=== PATIENT | female | born 1975 | race Caucasian/White ===

== ENCOUNTER 2024-05-26 21:00 | Outpatient (REF) | payer OTHER, SELFPAY ==
[2024-06-05 15:08] LABS: Age Gdln ACOG Testing Note (.); HPV Aptima Negative (Negative); IGP, Aptima HPV, rfx 16/18,45 Note (.)
== END 2024-05-26 21:01 | disposition home or self-care (01) ==
LOC: LAB 21:00
PROVIDERS: PCP Family Medicine; Visit Provider Physician Assistant
DX: Z01.419 Encounter for gynecological examination (general) (routine) without abnormal findings (principal)
CPT/HCPCS: 88175

== ENCOUNTER 2025-06-01 21:53 | Outpatient (REF) | payer OTHER, SELFPAY ==
--- OUTSIDE RECORDS SUMMARY | 2025-06-01 10:00 | XMS_ITS | Encounter Summary ---
Author Organization [facility] Address [address] [place] [address] Care Team Providers Care Redipper Name Role Phone Helga Ferris MD Primary Care Provider [phone] Jodi Michel SUPPORT MANAGER-MERCHANDISE CARRIER Unavailable + [phone] Reason for Visit * ReasonCommentsWell Women Visit Encounter Details DateTypeDepartmentCare Team (Latest Contact Info)Oodicsdnxwb73/29/2025 10:00 AM ESTOffice Visit [facility] [address] [place] [address] Yamilka Turcios PA [address] [place], [facility]11 Well woman exam with routine gynecological exam; Breast cancer screening by mammogram; Postmenopausal state; Pelvic pain in female; Pain of ovary; Hormone disorder Social History Tobacco UseTypesPacks/DayYears UsedDateSmoking Tobacco: NeverSmokeless Tobacco: NeverAlcohol UseStandard Drinks/WeekCommentsNever0 (1 standard drink = 0.6 oz pure alcohol)CommentsNoSex and Gender InformationValueDate RecordedSex Assigned at BirthNot on fileLegal NopPorpcv70/15/2023 6:51 PM EDTGender Identity Not on fileSexual OrientationNot on filedocumented as of this encounter Last Filed Vital Signs Vital SignReadingTime TakenCommentsBlood Zzeitctk497/6406/01/2025 10:28 AM EST Pulse--Temperature--Respiratory Rate--Oxygen Saturation--Inhaled Oxygen Concentration--Vajfiu01.8 kg (131 lb 12.8 oz)06/01/2025 10:28 AM ESTHeight--Body Mass Index23.3503 12:00 PM ESTdocumented in this encounter Progress Notes * DEN Ling - 06/01/2025 10:00 AM EST Reason for Appointment: Patient ID: Corrina Evans is a 50 y.o. female who presents for Well Women Visit Patient presents today for Annual Exam. MEDICATIONS Current Outpatient Medications Medication Instructions Tretinoin (Altreno) 0.05 % lotion APPLY A THIN LAYER TO FACE AT BEDTIME ALLERGIES No Known Allergies PROBLEMS Active Ambulatory Problems Diagnosis Date Noted No Active Ambulatory Problems Resolved Ambulatory Problems Diagnosis Date Noted No Resolved Ambulatory Problems Past Medical History: Diagnosis Date Anxiety and depression BMI 24.0-24.9, adult Breast cancer screening by mammogram Depression Encounter for gynecological examination (general) (routine) without abnormal findings Lateral epicondylitis of right elbow HISTORY PAST MEDICAL HISTORY SOCIAL HISTORY Past Medical History: Diagnosis Date Anxiety and depression BMI 24.0-24.9, adult Breast cancer screening by mammogram Depression Encounter for gynecological examination (general) (routine) without abnormal findings Lateral epicondylitis of right elbow Social History Tobacco Use Smoking status: Never Smokeless tobacco: Never Vaping Use Vaping status: Never Used Substance Use Topics Alcohol use: Never Drug use: Never FAMILY HISTORY Family History Problem Relation Name Age of Onset Hypertension Father Hyperlipidemia Father Cancer Paternal Grandmother Melanoma Neg Hx SURGICAL HISTORY Past Surgical History: Procedure Laterality Date SECTION, LOW TRANSVERSE 04/2000 REVIEW OF SYSTEMS Review of Systems: Review of Systems Constitutional: Negative. HENT: Negative. Eyes: Negative. Respiratory: Negative. Cardiovascular: Negative. Gastrointestinal: Negative. Genitourinary: Negative. Musculoskeletal: Negative. Skin: Negative. Neurological: Negative. All other systems reviewed and are negative. Hematological: Negative. Endocrine: Negative. Allergic/Immunologic: Negative. OBJECTIVE Objective: Physical Exam Constitutional: Appearance: Normal appearance. She is well-developed. Genitourinary: Vulva normal. Right Adnexa: not tender and no mass present. Left Adnexa: not tender and no mass present. No cervical discharge. Breasts: Breasts are soft. Right: Normal. Left: Normal. HENT: Head: Normocephalic. Nose: Nose normal. Mouth/Throat: Mouth: Mucous membranes are moist. Cardiovascular: Rate and Rhythm: Normal rate and regular rhythm. Pulmonary: Effort: Pulmonary effort is normal. Breath sounds: Normal breath sounds. Abdominal: General: Bowel sounds are normal. There is no distension. Palpations: Abdomen is soft. Tenderness: There is no abdominal tenderness. There is no guarding or rebound. Musculoskeletal: General: No swelling. Normal range of motion. Cervical back: Normal range of motion. Right lower leg: No edema. Left lower leg: No edema. Neurological: General: No focal deficit present. Mental Status: She is alert and oriented to person, place, and time. Skin: General: Skin is warm and dry. Psychiatric: Mood and Affect: Mood normal. Behavior: Behavior normal. Vitals and nursing note reviewed. Exam conducted with a missileman present. Vitals: Estimated body mass index is 23.35 kg/m?? as calculated from the following: Height as of 08/02/22: 5' 3 . Weight as of this encounter: 131 lb 12.8 oz. BP: Patient's last menstrual period was 05/20/2025. Assessment/Plan ICD-10-CM 1. Well woman exam with routine gynecological exam Z01.419 THIN PREP TIS PAP AND HR HPV DNA 2. Breast cancer screening by mammogram Z12.31 Bilateral screening mammogram Bilateral screening mammogram 3. Postmenopausal state Z78.0 DEXA bone density Assessment/Plan Annual: Patient presents today for an annual exam. Patient states she is doing well and has no complaints. Pap was obtained without difficulty and patient given mammogram order to have scheduled/obtained. Patient still having her menstrual periods regularly along with ovary pain prior to her period. Pt hasa history of a failed ablation and is considering to discuss a hysterectomy. Pt desires to have herhormones checked since she has not started menopause yet. Buderer labs were ordered along w/cbc andcmp. Pt was also given a pelvic US to have scheduled and obtained and a f/up visit scheduled w/Dr. Hsieh. PVU. Orders Placed This Encounter Procedures Bilateral screening mammogram DEXA bone density Follow Up: Patient is to return in one year for annual unless needed otherwise. Documented by Stephanie Dorsey LPN on behalf of: DEN Ling documented in this encounter Plan of Treatment DateTypeDepartmentCare Team (Latest Contact Info)Lgwtioyyeis06/06/2026 9:05 AM EDTOffice Visit [facility] [place] [facility] [address] [place] [address] Jodi Michel, JEFF-MERCHANDISE CARRIER [address] [place] [address] 06/01/2026 10:00 AM ESTProcedure Visit [facility] [address] [place] [phone] Yamilka Turcios PA [address] [facility] [place] [address] NameTypePriorityAssociated DiagnosesOrder ScheduleBilateral screening mammogram ImagingRoutine Breast cancer screening by mammogram Expected: 06/01/2025, Expires: 08/01/2026DEXA bone densityImagingRoutine Postmenopausal state Expected: 06/01/2025 (Approximate), Expires: 06/01/2026THIN PREP TIS PAP AND HR HPV DNAPathology and CytologyRoutine Well woman exam with routine gynecological exam Ordered: 06/01/2025US Pelvis w/ TVImagingRoutine Pelvic pain in female Pain of ovary Expected: 06/01/2025 (Approximate), Expires: 06/01/2026EstradiolLabRoutine Hormone disorder Ordered: 06/01/2025EstroneLabRoutine Hormone disorder Ordered: 06/01/2025ortisol, freeLabRoutine Hormone disorder Expected: 06/01/2025 (Approximate), Expires: 06/01/2026DHEA-sulfateLabRoutine Hormone disorder Ordered: 06/01/2025Sex hormone binding globulinLabRoutine Hormone disorder Ordered: 06/01/2025Insulin, totalLabRoutine Hormone disorder Expected: 06/01/2025 (Approximate), Expires: 06/01/2026Serotonin serumLabRoutine Hormone disorder Expected: 06/01/2025 (Approximate), Expires: 06/01/2026TSHLabRoutine Hormone disorder Ordered: 06/01/2025T4, freeLabRoutine Hormone disorder Ordered: 06/01/2025T3, reverseLabRoutine Hormone disorder Ordered: 06/01/2025ProgesteroneLabRoutine Hormone disorder Ordered: 06/01/2025Vitamin D 1,25 dihydroxyLabRoutine Hormone disorder Ordered: 06/01/2025FerritinLabRoutine Hormone disorder Ordered: 06/01/2025T3, freeLabRoutine Hormone disorder Ordered: 06/01/2025ThyroglobulinLabRoutine Hormone disorder Expected: 06/01/2025 (Approximate), Expires: 06/01/2026Thyroglobulin AntibodyLab Routine Hormone disorder Expected: 06/01/2025 (Approximate), Expires: 06/01/2026Thyroid peroxidase antibodyLabRoutine Hormone disorder Ordered: 06/01/20258227B3NexTfdqqfx Hormone disorder Expected: 06/01/2025 (Approximate), Expires: 06/01/2026TESTOSTERONE, FREELab Routine Hormone disorder Ordered: 06/01/2025Testosterone, free, totalLabRoutine Hormone disorder Ordered: 06/01/2025Hemoglobin A4eNzzEviofvz Hormone disorder Ordered: 06/01/2025Glucose, randomLabRoutine Hormone disorder Expected: 06/01/2025 (Approximate), Expires: 06/01/2026-peptideLabRoutine Hormone disorder Expected: 06/01/2025 (Approximate), Expires: 06/01/2026BC and differentialLab Routine Hormone disorder Ordered: 06/01/2025omprehensive metabolic panelLabRoutine Hormone disorder Ordered: 06/01/2025documented as of this encounter Visit Diagnoses Diagnosis Well woman exam with routine gynecological exam Routine gynecological examination Breast cancer screening by mammogram Postmenopausal state Asymptomatic postmenopausal status (age-related) (natural) Pelvic pain in female Unspecified symptom associated with female genital organs Pain of ovary Hormone disorder Unspecified endocrine disorder documented in this encounter Care Teams Team MemberRelationshipSpecialtyStart DateEnd Date Helga Ferris MD [address] [place] [phone] PCP - [facility]12/12/24 Jodi Michel, SUPPORT MANAGER-MERCHANDISE CARRIER [address] [facility] [address] [place] [address] PCP - Medical [place] [employer]01/20/1612/documented as of this encounter
--- OUTSIDE RECORDS SUMMARY | 2025-06-01 21:57 | XMS_ITS | Clinical Summary ---
Author Organization [facility] Address [address] [place] [address] Care Team Providers Care Director Community Organization Name Role Phone Helga Ferris MD Primary Care Provider [phone] Jodi Michel ASPHALT PATCHER-PHOTOGRAPHIC PROCESS WORKER Unavailable + [phone] Allergies No known active allergies Medications MedicationSigDispense QuantityRefillsLast FilledStart DateEnd DateStatus Tretinoin (Altreno) 0.05 % lotion Indications:RhytidesAPPLY A THIN LAYER TO FACE AT BEDTIME 45 g 1105Active Active Problems No known active problems Encounters DateTypeDepartmentCare OwvxCqwpimgdfwe19/29/2025 10:00 AM ESTOffice Visit [facility] [address] [place] [address] Yamilka Turcios PA Well woman exam with routine gynecological exam; Breast cancer screening by mammogram; Postmenopausal state; Pelvic pain in female; Pain of ovary; Hormone snferhmh75/29/2025amboo flowsheet [facility] [address] [place] [address] Yamilka Turcios PA from Last 3 Months Family History Medical HistoryRelationNameCommentsHyperlipidemiaFatherHypertensionFatherCancer Paternal GrandmotherMelanomaNeg HxRelationNameStatusCommentsFatherPaternal Grandmother Social History Tobacco UseTypesPacks/DayYears UsedDateSmoking Tobacco: NeverSmokeless Tobacco: Never Tobacco Cessation:Counseling Given: Not Answered Alcohol UseStandard Drinks/WeekCommentsNever0 (1 standard drink = 0.6 oz pure alcohol)CommentsNoSex and Gender InformationValueDate RecordedSex Assigned at BirthNot on fileLegal AfwTtfdqc28/ 6:51 PM EDTGender Identity Not on fileSexual OrientationNot on file Last Filed Vital Signs Vital SignReadingTime TakenCommentsBlood Yhherrhs052/6406/01/2025 10:28 AM EST Pulse--Temperature--Respiratory Rate--Oxygen Saturation--Inhaled Oxygen Concentration--Fqbsss82.8 kg (131 lb 12.8 oz)06/01/2025 10:28 AM MPUIoigwc307 cm (5' 3 )08/02/2022 12:00 PM ESTBody Mass Index23.35008/02/2022 12:00 PM EST Plan of Treatment DateTypeDepartmentCare Team (Latest Contact Info)Yezgpguktgf14/06/2026 9:05 AM EDTOffice Visit [facility] [address] [place] [phone] Jodi Michel APRN-PHOTOGRAPHIC PROCESS WORKER [address] [place] [address] 06/01/2026 10:00 AM ESTProcedure Visit [facility] [address] [place] [address] Yamilka Turcios PA [address] [facility] [place] [address] Health MaintenanceDue DateLast DoneCommentsCT Msvrtqjnqsdh1975FIT-DNA 1975FIT1975FOBT1975 1966Efecyuwyuwchl52/12/3547Bqqopkzhj34/21/2020 06/24/2018, 08/28/2016Influenza Vaccine (#1)2025Pap Smear05/26/2027 05/26/2024, 3Cervical Cancer Cnhjtwvim19/23/2028HPV/Frqzhu1106/26/2027 Hssswvrqtfx69/20/203112/1Colorectal Cancer Lqwdiwwhr48/20/2031Pneumococcal Vaccine: Pediatrics (0 to 5 Years) and At-Risk Patients (6 to 64 Years)Aged Out No longer eligible based on patient's age to complete this topic Procedures Procedure NamePriorityDate/TimeAssociated DiagnosisCommentsPAP SMEARRoutine 05/26/2024 12:00 AM ESTfrom Last 3 Months or Most Recently Relevant to Health Maintenance Results * Pap Smear (05/26/2024 12:00 AM EST)Specimen (Source)Anatomical Location / LateralityCollection Method / VolumeCollection TimeReceived TimeSwabCervical swab / Unknown Narrative Authorizing ProviderResult TypeResult StatusAmy Karolina PAL CYTOLOGY ORDERABLES Final ResultPerforming OrganizationAddressCity/State/ZIP CodePhone Number EXTERNAL LAB from Last 3 Months or Most Recently Relevant to Health Maintenance Insurance * Guarantor: Corrina Evans TypeRelation to PatientDate of BirthPhone Billing AddressPersonal/JrzxvhGpxx[address] [address] Care Teams Team MemberRelationshipSpecialtyStart DateEnd Date Helga Ferris MD [address] [facility] [place] [address] PCP - General12/12/24 Jodi Michel, ASPHALT PATCHER-PHOTOGRAPHIC PROCESS WORKER [address] [facility] [address] [place] [address] PCP - Medical [place] [employer]01/20/1612
--- OUTSIDE RECORDS SUMMARY | 2025-06-01 21:57 | XMS_ITS | Clinical Summary ---
Author Organization [facility] tem Address [id number] [address] [place] [address] Care Team Providers Care Manager Room Name Role Phone Helga Ferris MD Primary Care Provider [phone] Allergies No known active allergies Medications MedicationSigDispense QuantityRefillsLast FilledStart DateEnd DateStatus sertraline (ZOLOFT) 100 mg tablet Take 100 mg by mouth.Active sertraline (ZOLOFT) 50 mg tablet Take 50 mg by mouth daily.1Active zkgwkcxs-axgm-YI-calcium &mins (THERAGRAN-M) 9 mg iron-400 mcg tablet Take 1 tablet by mouth daily.Active metoprolol succinate XL (TOPROL-XL) 25 mg 24 hr tablet Take 25 mg by mouth daily.Active Active Problems No known active problems Family History Medical HistoryRelationNameCommentsAlzheimer's diseaseFatherHodgkin's lymphoma MotherColon cancerPaternal GrandmotherBreast cancerNeg HxRelationNameStatus CommentsBrother 1AliveBrother 2AliveFatherDeceasedMotherDeceasedPaternal GrandmotherDeceasedSister 1AliveSister 2Alive Social History Tobacco UseTypesPacks/DayYears UsedDateSmoking Tobacco: NeverSmokeless Tobacco: CurrentAlcohol UseStandard Drinks/WeekCommentsNever0 (1 standard drink = 0.6 oz pure alcohol)ChildcareAnswerDate UmjmvtunPvpbnkyyjIhezldu67/12/2019Employment AnswerDate UpsjgjspFduyfqcltbYzdkpin24/12/2019Purpose - LifeAnswerDate Recorded Purpose and direction in unslBtfvefz19/11/2021CommentsUnknownSex and Gender InformationValueDate RecordedSex Assigned at BirthNot on fileLegal Sex Epcktm8501/07/2015 11:55 AM EDTGender IdentityNot on fileSexual OrientationNot on file Last Filed Vital Signs Vital SignReadingTime TakenCommentsBlood Cmhfbscs175/7605/23/2021 8:05 AM EST Izdxp970205/23/2021 8:10 AM FSDUelvxtanwdd25.4 ??C (97.6 ??F)05/23/2021 6:31 AM ESTRespiratory Owxp732107/24/2020 8:10 AM ESTOxygen Fybzfgudgj697%05/23/2021 8:10 AM ESTInhaled Oxygen Concentration--Wdytal04.7 kg (125 lb)05/23/2021 6:31 AM EST Ikioyc959 cm (5' 3 )05/23/2021 6:31 AM ESTBody Mass Index22.14107/24/2020 6:31 AM EST Plan of Treatment Health MaintenanceDue DateLast DoneCommentsDepression Pfyzklyre30/12/1987Tobacco Kpemvzhvb96/12/1987Adult BMI Vmfvgnwzm78/12/1993DTaP,Tdap and Td Vaccines (1 - Tdap)1994Pap Smear1996Influenza Vjqchqd0502/02/2025Zoster (Shingles) Vaccine (1 of 2)4824Cjorwjntckd77/20/77427307/24/2020, 05/23/2021 Medical Devices Not on file Procedures Procedure NamePriorityDate/TimeAssociated DiagnosisCommentsPROVATION COLONOSCOPY Igkeebx9705/23/2021 6:34 AM EST from Last 3 Months or Most Recently Relevant to Health Maintenance Results * Colonoscopy Report (05/23/2021 6:34 AM EST)Specimen (Source)Anatomical Location / LateralityCollection Method / VolumeCollection TimeReceived Time Narrative SYSTEMGENERATED, DOCUMENTATION - 05/23/2021 6:34 AM EST This order has been auto-finalized for image and report archival in PACs. *For full report details, please reach out to your physician. ??Effective 5/18/21 this image will be visible to you in MyChart.* Authorizing ProviderResult TypeResult StatusMichael E Grillis DOIMG OR IMG ORDERABLESFinal Result from Last 3 Months or Most Recently Relevant to Health Maintenance Insurance * Guarantor: Corrina Evans TypeRelation to PatientDate of BirthPhone Billing AddressPersonal/UswzqqQqww1975 [address] [address] Care Teams Team MemberRelationshipSpecialtyStart DateEnd Date Helga Ferris MD [address] [place] [id number] PCP - General06/24/18
--- OUTSIDE RECORDS SUMMARY | 2025-06-01 21:57 | XMS_ITS | Encounter Summary ---
Author Organization [facility] Address [address] [place] [address] Care Team Providers Care Fpga Engineer Name Role Phone Helga Ferris MD Primary Care Provider [phone] Jodi Michel GASOLINE CATALYST OPERATOR-SWITCHBOARD CLERK Unavailable + [phone] Encounter Details DateTypeDepartmentCare Team (Latest Contact Info)Asnooprvfsu28/29/2025amboo flowsheet [facility] [address] [place] [phone] Yamilka Turcios PA [address] [place], [facility]11 Social History Tobacco UseTypesPacks/DayYears UsedDateSmoking Tobacco: NeverSmokeless Tobacco: NeverAlcohol UseStandard Drinks/WeekCommentsNever0 (1 standard drink = 0.6 oz pure alcohol)CommentsNoSex and Gender InformationValueDate RecordedSex Assigned at BirthNot on fileLegal DmlHxoogb14/15/2023 6:51 PM EDTGender Identity Not on fileSexual OrientationNot on filedocumented as of this encounter Plan of Treatment DateTypeDewadley regional medical centerCare Team (Latest Contact Info)Dgrpknspres85/06/2026 9:05 AM EDTOffice Visit [facility] [place] [facility] [address] [place] [phone] Jodi Michel, GASOLINE CATALYST OPERATOR-SWITCHBOARD CLERK [address] [place] [address] 06/01/2026 10:00 AM ESTProcedure Visit [facility] [address] [place] [phone] Yamilka Turcios PA [address] [place] [address] documented as of this encounter Visit Diagnoses Not on filedocumented in this encounter Care Teams Team MemberRelationshipSpecialtyStart DateEnd Date Helga Ferris MD [address] [place] [facility] [place] [address] PCP - General12/12/24 Jodi Michel APRN-SWITCHBOARD CLERK [address] [facility] [address] [place] [address] PCP - Medical [employer]8//documented as of this encounter
--- OUTSIDE RECORDS SUMMARY | 2025-06-01 21:57 | XMS_ITS | Clinical Summary ---
Author Organization [facility] Address [address] [place] [address], [address] [place] [address] Care Team Providers Care Puppy Sitter Name Role Phone Helga Ferris MD Primary Care Provider [phone] Allergies No known active allergies Medications MedicationSigDispense QuantityRefillsLast FilledStart DateEnd DateStatus sertraline (ZOLOFT) 100 MG tablet Take 100 mg by mouth daily.Active Social History Tobacco UseTypesPacks/DayYears UsedDateSmoking Tobacco: NeverComments UnknownSex and Gender InformationValueDate RecordedSex Assigned at BirthNot on fileLegal DnzTebpiw73/10/2013 8:53 PM ESTGender IdentityNot on fileSexual OrientationNot on file Last Filed Vital Signs Vital SignReadingTime TakenCommentsBlood Iczmvllq902/66008/19/2012 6:09 PM EDT Qyrox1176 6:09 PM QHGEgnhaaobblf71.9 ??C (98.5 ??F)08/19/2012 6:09 PM EDTRespiratory Ojtx4150 6:09 PM EDTOxygen Ohowqksbot151%08/19/2012 6:09 PM EDTInhaled Oxygen Concentration--Xkxsoa85.4 kg (120 lb)08/19/2012 6:09 PM EDT Height--Body Mass Index-- Plan of Treatment Not on file Care Teams Team MemberRelationshipSpecialtyStart DateEnd Date Helga Ferris MD [address] [place] [phone] PCP - General08/19/12
--- OUTSIDE RECORDS SUMMARY | 2025-06-01 21:57 | XMS_ITS | CCD ---
Author Organization [facility] CliniSywy Care Team Providers Care Coroner'S Juror Name Role Phone VANDANA, DR HELGA Ortiz Admitting Unavailable ROSS, DR HELGA Ortiz Attending Unavailable ROSS, DR HELGA Ortiz Consulting Unavailable ROSS, DR HELGA Ortiz Primary Care Unavailable ABHIJEET ., DR LEE Admitting Unavailable ROSS, DR HELGA Ortiz Primary Care Unavailable ABHIJEET ., DR LEE Attending Unavailable ABHIJEET ., DR LEE Consulting Unavailable ROSS, DR HELGA Ortiz Primary Care Unavailable ABHIJEET ., DR LEE Admitting Unavailable ABHIJEET ., DR LEE Attending Unavailable ABHIJEET ., DR LEE Consulting Unavailable NIKOS SELF Consulting Unavailable AMINTA FABIAN Consulting Unavailable ROSS, DR HELGA Ortiz Primary Care Unavailable ABHIJEET ., DR LEE Attending Unavailable ABHIJEET ., DR LEE Consulting Unavailable ABHIJEET ., DR LEE Admitting Unavailable ROSS, DR HELGA Ortiz Primary Care Unavailable ABHIJEET ., DR LEE Attending Unavailable ABHIJEET ., DR LEE Consulting Unavailable ABHIJEET ., DR LEE Admitting Unavailable HONEY, DR ANURAG Hua Consulting Unavailable Anjana Reyes MD Primary Care Provider Jodi Mejias Unavailable [phone] Yamilka Chiu Unavailable Helga Ross MD Primary Care Provider JODI MICHEL Attending Unavailable YAMILKA TUCKER Attending Unavailable Ady Hemphill Attending Provider [phone] Helga Ross MD Primary Care Provider [phone] Julianne Steinberg APRN Attending Provider Julianne Steinberg Attending Unavail able Julianne Steinberg Admitting Unavail able Ross, Helga E Primary Care Unavailable Medications Current Medications MedicationDrug Class(es)DatesSig (Normalized)Sig (Original)sertraline 100 mg oral tablet (6 sources)Serotonin Reuptake Inhibitor End: 84-99-3882ziju 1 tablet by mouth once dailysertraline (Zoloft) 100 MG tablet take 1 tablet (100MG) by ORAL route every day Oral 12/15/2024 Disc ontinued (Therapy completed)tretinoin 0.5 mg/ml topical lotion (11 sources)RetinoidStart: 44-76-1050Mmlab: 96-15-8246Puofdocaa ([place]) 0.05 % lotion Indications: Rhytides APPLY A THIN LAYER TO FACE AT BEDTIME 45 g 11 12/15/2024 ActiveStart: 48-61-0270Bekcfwkkp ([place]) 0.05 % lotion Indications: Rhytides APPLY A THIN LAYER TO FACE AT BEDTIME 45 g 11 12/15/2024 ActiveStart: 10-14-2024 End: 67-10-1863Vjnzzozmn ([place]) 0.05 % lotion Indications: Rhytides APPLY A THIN LAYER TO FACE AT BEDTIME 45 g 10/14/2024 12/15/2024 DiscontinuedStart: 51-25-8992Vjzwtzdgq ([place]) 0.05 % lotion Indications: Rhytides Apply thin layer to face at bedtime 45 g 11010/11/2023 Active Problems Problem ClassificationProblemDateDocumented DateEpisodic/ChronicAbdominal pain (3 sources)Pelvic and perineal pain; Translations: [Pain in female pelvis]Onset: 520559-34-9993TvmmlwuhXfnbiqjukleud and screening for infectious disease (1 source)Encounter for screening for human papillomavirus (HPV); Translations: [ENC SCREENING HUMAN PAPILLOMAVIRUS]Onset: 63-27-3583EflcakhnTggsppvsz disorders (5 sources)Excessive and frequent menstruation with irregular cycle; Translations: [EXCESS AND FREQ MEN W/IRREG CYCLE]Onset: 62-21-2058DyvgefqEfrgv and unspecified benign neoplasm (2 sources)Melanocytic nevus of scalp; Translations: [Melanocytic nevi of scalp and neck]71-03-9484EryqfszxAjcsb and unspecified benign neoplasm (2 sources)Melanocytic nevus of trunk; Translations: [Melanocytic nevi of trunk] 35-58-0993LrhjgmicZhjlj connective tissue disease (1 source)Pain in left finger(s); Translations: [Pain in left finger(s)]Onset: 56-75-0152BmrkjujcEysnq female genital disorders (1 source)Abnormal uterine and vaginal bleeding, unspecified; Translations: [ABNORMAL UTERINE VAGINAL BLEED UNS]Onset: 34-07-6892OlbeedaNrqgt injuries and conditions due to external causes (4 sources)Thumb injury ; Translations: [Unspecified injury of left wrist, hand and finger(s), initial encounter]10-89-0422OoomfajmXzqjc screening for suspected conditions (not mental disorders or infectious disease) (6 sources)Encounter for screening for malignant neoplasm of cervix; Translations: [Patient encounter status]Onset: 24-84-9289QnyyllgeJdxli skin disorders (2 sources)Wrinkled skin; Translations: [Other specified disorders of the skin and subcutaneous tissue]64-78-3012EgyxddxmEhqhr skin disorders (2 sources)Lentiginosis; Translations: [Other melanin hyperpigmentation] 85-46-5539Sifvsetk Results Test NameValueInterpretationReference RangeFacilityX-ray reportOrdered By: Jose Ferrari on 37-03-9434Grlvb reportBRECKSVILLE [facility] [place] [address] XRay Report Signed Patient: Corrina Evans MR#: [id number] : 1975 Acct:[id number] Age/Sex: 49 / F ADM Date: 5 Loc: XDUCLY Room: Type: [facility] Attending Dr: Julianne Steinberg APRN, DIVERSIONAL THERAPIST'S ASSISTANT-C Copies to: Julianne Steinberg APRN~ Ordering Provider: Julianne Steinberg APRN Date of Service: 01/19/25 XR/XR finger LT thumb: S69.92XA - Unspecified injury of left wrist, handand fin... XR finger LT thumb 01/19/2025 4:32 PM SIGNS AND SYMPTOMS: Fall, injury to left thumb with pain along the first metacarpophalangeal joint PROTOCOL: Frontal, lateral, and oblique radiographs of the left hand and left thumb COMPARISON: None FINDINGS: The bones are in anatomic alignment. The joint spaces are preserved. There is no evidence of fracture or dislocation. No significant soft tissue swelling. XR/XR finger LT thumb IMPRESSION: No acute bony injury. Impression dictated by: Jose Ferrari M.D. 01/19/2025 4:37 PM Dictation Location: [place] [address] Transcribed By: LUCIO 01/19/251636 Dictated By: Jose Ferrari II, MD 01/19/25 163 Signed By: 01/19/251636 [facility] Work Phone: XR finger LT thumbon 34-71-7943MD finger LT thumb [facility] [place] [address] XRay Report Signed Patient: Corrina Evans MR#: [id number] : 1975 Acct:[id number] Age/Sex: 49 / F ADM Date: 01/19/25 Loc: XDUCLY Room: Type: [facility] Attending Dr: Julianne Steinberg APRN, DIVERSIONAL THERAPIST'S ASSISTANT-C Copies to: Julianne Steinberg APRN Ordering Provider: Julianne Steinberg APRN Date of Service: 01/19/25 XR/XR finger LT thumb: S69.92XA - Unspecified injury of left wrist, hand and fin... XR finger LT thumb 01/19/2025 4:32 PM SIGNS AND SYMPTOMS: Fall, injury to left thumb with pain along the first metacarpophalangeal joint PROTOCOL: Frontal, lateral, and oblique radiographs of the left hand and left thumb COMPARISON: None FINDINGS: The bones are in anatomic alignment. The joint spaces are preserved. There is no evidence of fracture or dislocation. No significant soft tissue swelling. XR/XR finger LT thumb IMPRESSION: No acute bony injury. Impression dictated by: Jose Ferrari M.D. 01/19/2025 4:37 PM Dictation Location: [place] [address] Transcribed By: LUCIO 01/19/251636 Dictated By: Jose Ferrari II, MD 01/19/251635 Signed By: 01/19/251636[facility] Physician Yogi,ANAYELI HPV,AGE KARYELNon 92-57-7787PYT GDLN ACOG TESTINGNote.NOMS HealthcareComment on above:TESTS RESULT FLAG UNITS REF RANGE LAB Clinician Provided Cytology Information Source.............Cervix;Endocervix No. of containers..01 ThinPrep Vial Age Algo ACOG Maria L... 3065 FLAG LEGEND: L-Low Normal,H-High Normal,LL-Alert Low,HH-Alert High <-Panic Low,>-Panic High,A-Abnormal,AA-Critical Abnormal Performed at: 01 =G [address] [address] Natali Gloria MD, HPV APTIMANegativeNegativeNOMS HealthcareComment on above:This nucleic acid amplification test detects fourteen high- risk HPV types (16,18,31,33,35,39,45,51,52,56,58,59,66,68) without differentiation. Performed at: =[facility] [id number] Key Account Manager: Natali Gloria MD, Phone: [phone] Performed at: - [facility], [place] [id number] Key Account Manager: Natali Gloria MD, Phone: [phone] IGP, APTIMA HPV, RFX 16/18,45Note.NOMS HealthcareComment on above:TESTS RESULT FLAG UNITS REF RANGE LAB DIAGNOSIS: 02 NEGATIVE FOR INTRAEPITHELIAL LESION OR MALIGNANCY. REACTIVE CELLULAR CHANGES AND/OR REPAIR ARE PRESENT. Specimen adequacy: 02 Satisfactory for evaluation. No endocervical component is identified. Performed by: 02 Yamilka Macario, Examination Scorer (ASCP) Electronically si... Dayana Nuñez MD, Pathologist . 02 Note: Note 02 The Pap smear is a screening test designed to aid in the detection of premalignant and malignant conditions of the uterine cervix. It is not a diagnostic procedure and should not be used as the sole means of detecting cervical cancer. Both false-positive and false-negative reports do occur. Test Methodology: Note 02 This liquid based ThinPrep(R) pap test was screened with the use of an image guided system. HPV Genotype Reflex Note 02 Criteria not met, HPV Genotype not performed. FLAG LEGEND: L-Low Normal,H-High Normal,LL-Alert Low,HH-Alert High <-Panic Low,>-Panic High,A-Abnormal,AA-Critical Abnormal Performed at: [facility] [address] [place] [address] Natali Gloria MD, BRUSH-SPATULA CERVIX ENDOCERVIX [facility] AUTO DIFFon 56-76-2452LVTI #0.1 103/ulNormal0.0-0.1 [facility] HospitalComment on above:Performed By: #### CBC #### [facility] [address] [address] [address] Chip TuckerBasophils/100 WBC (Bld)1.4 %Normal0.2-2.0The [facility] Comment on above:Performed By: #### CBC #### [facility] [address] [address] [address] Chip Leigh #0.6 103/ulNormal0.0-0.7The [facility] HospitalComment on above: Performed By: #### CBC #### [facility] [address] [place] [address] Dr. Chip Hintonosinophils/100 WBC (Bld)8.8 %Critically high0.9-7.0The [facility] HospitalComment on above:Performed By: #### CBC #### [facility] [address] [place] [address] Dr. Chip Hintonrythrocyte distribution width (RBC) [Ratio]12.0 %Foohdk59.0-15.0 [facility] HospitalComment on above:Performed By: #### CBC #### [facility] [address] [place] [address] Dr. Chip TuckerHematocrit (Bld) [Volume fraction]38.4 %Xumkmv86.0-48.0Flower HospitalComment on above:Performed By: #### CBC #### [facility] [address] [address] [address] Chip TuckerHemoglobin (Bld) [Mass/Vol]13.0 g/wNLscgqa05.0-16.0F[facility] HospitalComment on above:Performed By: #### CBC #### [facility] [address] [place] [address] Dr. Chip Nichols #0.02 10e3/ulNormal0.00-0.03The [facility] HospitalComment on above:Performed By: #### CBC #### [facility] [address] [place] [address] Dr. Chip Nichols %0.3 %Normal0.0-0.5The [facility] HospitalComment on above: Performed By: #### CBC #### [facility] [address] [place] [address] Dr. Chip Foreman #2.1 103/ulNormal1.2-3.8The [facility] HospitalComment on above:Performed By: #### CBC #### [facility] [address] [place] [address] Dr. Chip Hermanhocytes/100 WBC (Bld)28.8 %Xnnyud05.5-60.0The [facility] HospitalComment on above:Performed By: #### CBC #### [facility] [address] [place] [address] Dr. Chip Barker DIFF REQNONormalThe [facility] HospitalComment on above: Performed By: #### CBC #### [facility] [address] [place] [address] Dr. Chip Gottlieb (RBC) [Entitic mass]30.7 eyQrsrse79.7-34.0The [facility] HospitalComment on above:Performed By: #### CBC #### [facility] [address] [place] [address] Dr. Chip Damico (RBC) [Mass/Vol]33.9 g/mBVekvpo47.9-35.2The [facility] HospitalComment on above:Performed By: #### CBC #### [facility] [address] [place] [address] Dr. Chip Damico (RBC) [Entitic vol]90.6 gZWroxzv04.0-99.0The [facility] HospitalComment on above:Performed By: #### CBC #### [facility] [address] [place] [address] Dr. Yilan ChangMONO #0.7 103/ulNormal0.3-0.8The [facility] HospitalComment on above:Performed By: #### CBC #### [facility] [address] [place] [address] Dr. Chip Kimocytes/100 WBC (Bld)9.1 %Normal1.7-12.0The [facility] Comment on above:Performed By: #### CBC #### [facility] [address] [place] [address] Dr. Chip Quintanilla #3.7 103/ulNormal1.4-6.5The [facility] HospitalComment on above:Performed By: #### CBC #### [facility] [address] [place] [address] Dr. Chip Romeroutrophils/100 WBC (Bld)51.6 %Sqwdtk27.0-75.0The [facility] HospitalComment on above:Performed By: #### CBC #### [facility] [address] [place] [address] Dr. Chip Oateslet mean volume (Bld) [Entitic vol]8.6 fLCritically low 9.5-13.5The [facility] HospitalComment on above:Performed By: #### CBC #### [facility] [address] [place] [address] Dr. Chip RibeiroT308 103/abQaeyxy904-637Lqu [facility] HospitalComment on above: Performed By: #### CBC #### [facility] [address] [place] [address] Dr. Chip TuckerRBC4.24 106/ulNormal4.20-5.40The [facility] HospitalComment on above:Performed By: #### CBC #### [facility] [address] [place] [address] Dr. Chip TuckerWBC7.3 103/ulNormal4.0-11.0The [facility] HospitalComment on above: Performed By: #### CBC #### [facility] [address] [place] [address] Dr. Chip Buchanan QUANT HCGon 84-27-4318LOO QUANT<1NormalThe [facility] Comment on above:Performed By: #### PREGQNT #### [facility] [address] [place] [address] Dr. Chip Scherer RANGESThe MetroHealth SystemComment on above: Result Comment: 5-50 0.2-1 WEEK 50-500 1-2 WEEKS 100-5,000 2-3 WEEKS 500-10,000 3-4 WEEKS 1,000-50,000 4-5 WEEKS 10,000-100,000 5-6 WEEKS 15,000-200,000 6-8 WEEKS 10,000-100,000 2-3 MONTHSPerformed By: #### PREGQNT #### [facility] [address] [place] [address] Dr. Chip Metz AUTO DIFFon 39-02-3021NZAM #0.1 103/ulNormal0.0-0.1[facility] HospitalComment on above:Performed By: #### PREGQNT #### [facility] [address] [place] [address] Dr. Chip Gagnonsophils/100 WBC (Bld)1.0 %Normal0.2-2.0[facility] Comment on above:Performed By: #### PREGQNT #### [facility] [address] [place] [address] Dr. Chip Leigh #0.5 103/ulNormal0.0-0.7The [facility] HospitalComment on above: Performed By: #### PREGQNT #### [facility] [address] [place] [address] Dr. Chip Hintonosinophils/100 WBC (Bld)6.3 %Normal0.9-7.0The [facility] Comment on above:Performed By: #### PREGQNT #### [facility] [address] [place] [address] Dr. Chip Hintonrythrocyte distribution width (RBC) [Ratio]13.3 %Iohvhw98.0-15.0 The [facility] HospitalComment on above:Performed By: #### PREGQNT #### [facility] [address] [address] [address] Chip TuckerHematocrit (Bld) [Volume fraction]37.2 %Eyfmgq96.0-48.0The [facility] HospitalComment on above:Performed By: #### PREGQNT #### [facility] [address] [place] [address] Dr. Chip TuckerHemoglobin (Bld) [Mass/Vol]12.0 g/oTRghfal80.0-16.0The [facility] HospitalComment on above:Performed By: #### PREGQNT #### [facility] [address] [place] [address] Dr. Chip Nichols #0.02 10e3/ulNormal0.00-0.03The [facility] HospitalComment on above:Performed By: #### PREGQNT #### [facility] [address] [place] [address] Dr. Chip Nichols %0.2 %Normal0.0-0.5The [facility] HospitalComment on above: Performed By: #### PREGQNT #### [facility] [address] [place] [address] Dr. Chip Foreman #2.0 103/ulNormal1.2-3.8The [facility] HospitalComment on above:Performed By: #### PREGQNT #### [facility] [address] [place] [address] Dr. Chip Casianomphocytes/100 WBC (Bld)23.8 %Wyimri93.5-60.0The [facility] HospitalComment on above:Performed By: #### PREGQNT #### [facility] [address] [place] [address] Dr. Chip StephensonUAL DIFF REQNONormalThe [facility] HospitalComment on above: Performed By: #### PREGQNT #### [facility] [address] [place] [address] Dr. Chip Gottlieb (RBC) [Entitic mass]30.2 hcXbswgi14.7-34.0The [facility] HospitalComment on above:Performed By: #### PREGQNT #### [facility] [address] [place] [address] Dr. Chip Damico (RBC) [Mass/Vol]32.3 g/aGLybnni51.9-35.2The [facility] HospitalComment on above:Performed By: #### PREGQNT #### [facility] [address] [place] [address] Dr. Chip Damico (RBC) [Entitic vol]93.7 kPVsnjdo61.0-99.0The [facility] HospitalComment on above:Performed By: #### PREGQNT #### [facility] [address] [place] [address] Dr. Chip Curtis #0.6 103/ulNormal0.3-0.8The [facility] HospitalComment on above:Performed By: #### PREGQNT #### [facility] [address] [place] [address] Dr. Chip Kimocytes/100 WBC (Bld)7.2 %Normal1.7-12.0The [facility] Comment on above:Performed By: #### PREGQNT #### [facility] [address] [place] [address] Dr. Chip Quintanilla #5.1 103/ulNormal1.4-6.5The [facility] HospitalComment on above:Performed By: #### PREGQNT #### [facility] [address] [place] [address] Dr. Chip Morganophils/100 WBC (Bld)61.5 %Oensyd78.0-75.0The [facility] HospitalComment on above:Performed By: #### PREGQNT #### [facility] [address] [place] [address] Dr. Chip Canales mean volume (Bld) [Entitic vol]8.7 fLCritically low 9.5-13.5The [facility] HospitalComment on above:Performed By: #### PREGQNT #### [facility] [address] [address] [address] Chip TuckerPLT271 103/ewDltjtu141-376Ojv [facility] on above: Performed By: #### PREGQNT #### [facility] [address] [place] [address] Dr. Chip TuckerRBC3.97 106/ulCritically low4.20-5.40The [facility] on above:Performed By: #### PREGQNT #### [facility] [address] [place] [address] Dr. Chip TuckerWBC8.3 103/ulNormal4.0-11.0The [facility] on above: Performed By: #### PREGQNT #### [facility] [address] [place] [address] Dr. Chip TuckerFREE T4on 70-90-1959Ulnu T4 [Mass/Vol]0.76 ng/dLNormal0.76-1.46 The [facility] HospitalCommun[facility] on above:Performed By: #### PREGQNT #### [facility] [address] [place] [address] Dr. Chip TuckerGLYCOHEMOGLOBIN A1Con 85-63-9314RQH RECOMMENDATIONSEE BELOWNormal The [facility] HospitalCommun[facility] healthcare [facility] on above:Result Comment: ADA RECOMMENDED LIMIT 4.0 - 6.0 ADA THERAPEUTIC TARGET < 7.0 ACTION SUGGESTED > 7.0Performed By: #### A1C #### [facility] [address] [place] [address] Dr. Chip TuckerGlucose [Mass/Vol]100 mg/dLNormalThe [facility] HospitalCommunson healthcare [facility] on above:Performed By: #### A1C #### [facility] [address] [place] [address] Dr. Chip TuckerHbA1c (Bld) [Mass fraction]5.1 %Normal4.5-6.2The [facility] on above:Performed By: #### A1C #### [facility] [address] [place] [address] Dr. Chip TuckerPREG QUANT HCGon 34-69-9935PYM QUANT<1NormalFlower Hospital Comment on above:Performed By: #### PREGQNT, TSH #### [facility] [address] [place] [address] Dr. Chip Scherer [facility] HospitalComment on above: Result Comment: 5-50 0.2-1 WEEK 50-500 1-2 WEEKS 100-5,000 2-3 WEEKS 500-10,000 3-4 WEEKS 1,000-50,000 4-5 WEEKS 10,000-100,000 5-6 WEEKS 15,000-200,000 6-8 WEEKS 10,000-100,000 2-3 MONTHSPerformed By: #### PREGQNT, TSH #### [facility] [address] [place] [address] Dr. Chip TuckerPROTIMEmello 71-42-5828NED Coag (PPP) [Relative time]0.97 {INR} NormalFlower HospitalComment on above:Performed By: #### PTT, PT #### [facility] [address] [place] [address] Dr. Chip Vu [facility] HospitalComment on above:Result Comment: DESIRED INR: 2.0 - 3.0 CONDITIONS NOT LISTED BELOW 2.5 - 3.5 FOR PROSTHETIC HEART VALVE REPLACEMENT 2.5 - 3.5 RECURRENT THROMBOSIS Performed By: #### PTT, PT #### [facility] [address] [place] [address] Dr. Chip Chang Coag (PPP) [Time]10.3 sNormal9.0-11.6ThSelect [facility] Comment on above:Performed By: #### PTT, PT #### [facility] [address] [place] [address] Dr. Chip Moore 39-53-1196jZSR Coag (Bld) [Time]29.1 bVrytvo35.3-36.2[facility] on above:Performed By: #### PTT, PT #### [facility] [address] [place] [address] Dr. Chip Hale 98-25-9144VGF8.689 uIU/mLNormal0.358-3.740The [facility] HospitalComment on above:Performed By: #### PREGQNT, TSH #### [facility] [address] [address] [address] Chip Castillo PELVIS AND TRANSVAGon 83-79-0640ND PELVIS AND TRANSVAG EXAMINATION: US PELVIS AND TRANSVAG HISTORY: Excessive menstruation with irregular cycle COMPARISON: No relevant comparison available. TECHNIQUE: Transabdominal and transvaginal sonographic examination. FINDINGS: UTERUS: Within the anterior fundal wall, subserosal location is a 9 mm hypoechoic mass with surrounding vascularity favoring a leiomyoma. Several small calcifications within the upper cervix, likely dystrophic. Uterus size: 12.3 x 6.3 x 7.3 cm ENDOMETRIUM: Upper limits of normal in thickness, but homogeneous. Endometrial thickness: 14 mm RIGHT OVARY: Normal size and appearance. Duplex Doppler demonstrates normal waveform and flow; resistive index 0.3. Ovary size: 3.2 x 1.1 x 1.9 cm LEFT OVARY: Normal size and appearance. Duplex Doppler demonstrates normal waveform and flow; resistive index 0.5. Ovary size: 3.0 x 3.6 x 2.2 cm CUL-DE-SAC: Unremarkable. No significant free fluid. BLADDER: Unremarkable. OTHER: None. IMPRESSION: 1. Small subserosal mass favoring a leiomyoma within anterior fundal uterine wall of questionable clinical significance. 2. Normal appearance of endometrium, which is at upper limits of normal in thickness at this time. 3. Unremarkable ovaries. Electronically authenticated by: ANURAG MÉNDEZ Date: 2022-07-05 16:55[facility] ACOG PANEL 2: 30 to 65on 06-30-2022..NormalThe [facility] HospitalComment on above:Result Comment: Performed at: WBPerformed By: #### [id number] #### [facility] [address] [place] [address] Dr. Chip Luciano Gdln ACOG Bjrylid28-69CohlbeVthChillicothe VA Medical CenterComment on above:Performed By: #### [id number] #### [facility] [facility] [address] [address] [address] Chip TuckerDIAGNOSIS:CommentDunlap Memorial Hospital on above: Result Comment: NEGATIVE FOR INTRAEPITHELIAL LESION OR MALIGNANCY. Performed at: WBPerformed By: #### [id number] #### [facility] [address] [place] [address] Dr. Chip Ruiz AptimaNegativeNormalNegativeThe [facility] on above:Result Comment: This nucleic acid amplification test detects fourteen high-risk HPV types (16,18,31,33,35,39,45,51,52,56,58,59,66,68) without differentiation. Performed at: =GPerformed By: #### [id number] #### [facility] [address] [place] [address] Dr. Chip Ruiz Genotype ReflexCommentNoAdams County Regional Medical Center on above:Result Comment: Criteria not met, HPV Genotype not performed. Performed at: WBPerformed By: #### [id number] #### [facility] [address] [place] [address] Dr. Chip TuckerMethodology:CommentDunlap Memorial Hospital on above: Result Comment: This liquid based ThinPrep(R) pap test was screened with the use of an image guided system. Performed at: WBPerformed By: #### [id number] #### [facility] [address] [place] [address] Dr. Chip TuckerNote:CommentDunlap Memorial Hospital on above:Result Comment: The Pap smear is a screening test designed to aid in the detection of premalignant and malignant conditions of the uterine cervix. It is not a diagnostic procedure and should not be used as the sole means of detecting cervical cancer. Both false-positive and false-negative reports do occur. . Performed at: WBPerformed By: #### [id number] #### [facility] [address] [place] [address] Dr. Chip TuckerPerformed by:CommentDunlap Memorial Hospital on above: Result Comment: Aziza Sheldon, Examination Scorer (ASCP) Performed at: WBPerformed By: #### [id number] #### [facility] [address] [place] [address] Dr. Chip Alas adequacy:CommentNormalThe [facility] HospitalCommunson healthcare [facility] on above:Result Comment: Satisfactory for evaluation. Endocervical and/or squamous metaplastic cells (endocervical component) are present. Performed at: WBPerformed By: #### [id number] #### [facility] [address] [place] [address] Dr. Chip TuckerHEALTH FAIR CBC AUTO DIFFon 29-21-8282NZCJ #0.1 103/ulNormal 0.0-0.1The [facility] HospitalComment on above:Performed By: #### PREGQNT #### [facility] [address] [place] [address] Dr. Chip TuckerBasophils/100 WBC (Bld)1.6 %Normal0.2-2.0[facility] Comment on above:Performed By: #### PREGQNT #### [facility] [address] [place] [address] Dr. Chip Leigh #0.7 103/ulNormal0.0-0.7The [facility] HospitalComment on above: Performed By: #### PREGQNT #### [facility] [address] [place] [address] Dr. Chip Hintonosinophils/100 WBC (Bld)10.0 %Critically high0.9-7.0The [facility] HospitalComment on above:Performed By: #### PREGQNT #### [facility] [address] [place] [address] Dr. Chip Hintonrythrocyte distribution width (RBC) [Ratio]13.6 %Ojtmbh37.0-15.0 The [facility] HospitalComment on above:Performed By: #### PREGQNT #### [facility] [address] [place] [address] Dr. Chip TuckerHematocrit (Bld) [Volume fraction]35.5 %Critically low36.0-48.0 The [facility] HospitalComment on above:Performed By: #### PREGQNT #### [facility] [address] [place] [address] Dr. Chip TuckerHemoglobin (Bld) [Mass/Vol]11.2 g/dLCritically low12.0-16.0The [facility] HospitalComment on above:Performed By: #### PREGQNT #### [facility] [address] [place] [address] Dr. Chip Nichols #0.01 10e3/ulNormal0.00-0.03The [facility] HospitalComment on above:Performed By: #### PREGQNT #### [facility] [address] [place] [address] Dr. Chip Nichols %0.1 %Normal0.0-0.5The [facility] HospitalComment on above: Performed By: #### PREGQNT #### [facility] [address] [place] [address] Dr. Chip Foreman #2.0 103/ulNormal1.2-3.8The [facility] HospitalComment on above:Performed By: #### PREGQNT #### [facility] [address] [place] [address] Dr. Chip Hermanhocytes/100 WBC (Bld)29.0 %Zvaese79.5-60.0The [facility] HospitalComment on above:Performed By: #### PREGQNT #### [facility] [address] [place] [address] Dr. Chip Damico (RBC) [Entitic mass]26.9 wiFgrxef83.7-34.0The [facility] HospitalComment on above:Performed By: #### PREGQNT #### [facility] [address] [place] [address] Dr. Chip Damico (RBC) [Mass/Vol]31.5 g/hEPssblw94.9-35.2The [facility] HospitalComment on above:Performed By: #### PREGQNT #### [facility] [address] [place] [address] Dr. Yilan ChangMCV (RBC) [Entitic vol]85.1 vJEqsvph16.0-99.0The [facility] HospitalComment on above:Performed By: #### PREGQNT #### [facility] [address] [place] [address] Dr. Chip Curtis #0.7 103/ulNormal0.3-0.8The [facility] HospitalComment on above:Performed By: #### PREGQNT #### [facility] [address] [place] [address] Dr. Chip Kimocytes/100 WBC (Bld)9.7 %Normal1.7-12.0The [facility] Comment on above:Performed By: #### PREGQNT #### [facility] [address] [place] [address] Dr. Chip Quintanilla #3.4 103/ulNormal1.4-6.5The [facility] HospitalComment on above:Performed By: #### PREGQNT #### [facility] [address] [place] [address] Dr. Chip TuckerNeutrophils/100 WBC (Bld)49.6 %Ktkmzh93.0-75.0The [facility] HospitalComment on above:Performed By: #### PREGQNT #### [facility] [address] [place] [address] Dr. Chip Oateslet mean volume (Bld) [Entitic vol]9.0 fLCritically low 9.5-13.5The [facility] HospitalComment on above:Performed By: #### PREGQNT #### [facility] [address] [place] [address] Dr. Chip TuckerPLT343 103/ayItqqea677-433Jxd [facility] HospitalComment on above: Performed By: #### PREGQNT #### [facility] [address] [place] [address] Dr. Chip TuckerRBC4.17 106/ulCritically low4.20-5.40The [facility] HospitalComment on above:Performed By: #### PREGQNT #### [facility] [address] [place] [address] Dr. Chip TuckerWBC6.8 103/ulNormal4.0-11.0The [facility] HospitalComment on above: Performed By: #### PREGQNT #### [facility] [address] [place] [address] Dr. Chip TuckerHEALTHFAIR PROFILEon 09-48-9981Unsbgtr [Mass/Vol]4.1 g/dLNormal 3.4-5.0The [facility] HospitalComment on above:Performed By: #### HFPF #### [facility] [address] [place] [address] Dr. Chip TuckerAlbumin/Globulin [Mass ratio]1.2 {ratio}NormalThe [facility] HospitalComment on above:Performed By: #### HFPF #### [facility] [address] [place] [address] Dr. Chip ChavezP [Catalytic activity/Vol]79 U/KGetyon29-324Grf [facility] HospitalComment on above:Performed By: #### HFPF #### [facility] [address] [place] [address] Dr. Chip ChavezT [Catalytic activity/Vol]19 U/PRkviwp89-05Rqj [facility] HospitalComment on above:Performed By: #### HFPF #### [facility] [address] [place] [address] Dr. Chip TuckerAST [Catalytic activity/Vol]16 U/YZkbqjz39-46Fwf [facility] Centerment on above:Performed By: #### HFPF #### [facility] [address] [place] [address] Dr. Chip TuckerBilirubin [Mass/Vol]0.4 mg/dLNormal0.2-1.0The [facility] Comment on above:Performed By: #### HFPF #### [facility] [address] [place] [address] Dr. Chip TuckerCalcium [Mass/Vol]9.1 mg/dLNormal8.5-10.1The [facility] Comment on above:Performed By: #### HFPF #### [facility] [address] [address] [address] Chip TuckerChloride [Moles/Vol]101 mmol/ATvpnxq16-272Dfa [facility] Comment on above:Performed By: #### HFPF #### [facility] [address] [address] [address] Chip TuckerCHOL-HDL RATIO NORMSEE BELOWSelect Medical Specialty Hospital - AkronComment on above:Result Comment: 3.3 - 4.4 LOW RISK 4.4 - 7.1 AVERAGE RISK 7.1 - 11.0 MODERATE RISK >11.0 HIGH RISKPerformed By: #### HFPF #### [facility] [address] [place] [address] Dr. Chip TuckerCholesterol [Mass/Vol]228 mg/dLCritically high<=200The [facility] HospitalComment on above:Performed By: #### HFPF #### [facility] [address] [place] [address] Dr. Chip TuckerCholesterol in HDL [Mass/Vol]86 mg/dLCritically smxg77-33Evz [facility] HospitalComment on above:Performed By: #### HFPF #### [facility] [address] [place] [address] Dr. Chip TuckerCholesterol in LDL [Mass/Vol]128.6 mg/dLSelect Medical Specialty Hospital - AkronComment on above:Performed By: #### HFPF #### [facility] [address] [place] [address] Dr. Chip Lewisesternaomi.total/Cholesterol in HDL [Mass ratio]2.7 {ratio} NormalThe [facility] HospitalComment on above:Performed By: #### HFPF #### [facility] [address] [place] [address] Dr. Chip TuckerCO2 [Moles/Vol]26.8 mmol/GNmknlp67.0-32.0The [facility] Comment on above:Performed By: #### HFPF #### [facility] [address] [place] [address] Dr. Chip TuckerCreatinine [Mass/Vol]0.84 mg/dLNormal0.55-1.02[facility] HospitalComment on above:Performed By: #### HFPF #### [facility] [address] [place] [address] Dr. Chip TuckerGlobulin (S) [Mass/Vol]3.5 g/dLSelect Medical Specialty Hospital - AkronComment on above:Performed By: #### HFPF #### [facility] [address] [place] [address] Dr. Chip TuckerGlucose [Mass/Vol]89 mg/zVMuduff18-833JeaFlower Hospital Comment on above:Performed By: #### HFPF #### [facility] [address] [place] [address] Dr. Chip Bowman NORMAL> or = 60 mg/dl - LOW CARDIOVASCULAR RISK <40 mg/dl - HIGH CARDIOVASCULAR RISKSelect Medical Specialty Hospital - AkronComment on above:Performed By: #### HFPF #### [facility] [address] [place] [address] Dr. Chip TuckerLDL CALC NORMALSEE BELOWSelect Medical Specialty Hospital - AkronComment on above:Result Comment: <100 mg/dl OPTIMAL 100 - 129 mg/dl NEAR OR ABOVE OPTIMAL 130 - 159 mg/dl BORDERLINE HIGH 160 - 189 mg/dl HIGH >190 mg/dl VERY HIGH Performed By: #### HFPF #### [facility] [address] [place] [address] Dr. Chip TuckerPotassium [Moles/Vol]4.1 mmol/LNormal3.5-5.1The [facility] Comment on above:Performed By: #### HFPF #### [facility] [address] [place] [address] Dr. Chip TuckerProtein [Mass/Vol]7.6 g/dLNormal6.4-8.2The [facility] Comment on above:Performed By: #### HFPF #### [facility] [address] [place] [address] Dr. Chip TuckerSodium [Moles/Vol]137 mmol/UTbbqdd522-410Azc [facility] Comment on above:Performed By: #### HFPF #### [facility] [address] [address] [address] Chip TuckerTriglyceride [Mass/Vol]67 mg/dLNormal<=150The [facility] Comment on above:Performed By: #### HFPF #### [facility] [address] [address] [address] Chip TuckerTSH2.372 uIU/mLNormal0.358-3.740The [facility] HospitalComment on above:Performed By: #### HFPF #### [facility] [address] [address] [address] Chip TuckerUrea nitrogen [Mass/Vol]8.0 mg/dLNormal7.0-18.0The [facility] HospitalComment on above:Performed By: #### HFPF #### [facility] [address] [address] [address] Chip Anton nitrogen/Creatinine [Mass ratio]9.5 mg/mgNoChillicothe VA Medical CenterComment on above:Performed By: #### HFPF #### [facility] [address] [address] [address] Chip TuckerVLDL CALC13.4 mg/dLNoChillicothe VA Medical CenterComment on above: Performed By: #### HFPF #### [facility] [address] [address] [address] Chip Tucker Vital Signs Date TimeVital SignValuePerforming WdlqyftsdRdrfbdox41-47-3799 15:45-0400Body yxgpme341.02 cmHelga Ross MD Work Phone: [facility]08-18-2025 15:45-0400 Body mass index (BMI) [Ratio]23.3 kg/k3CgyxcaHelga Ross MD Work Phone: [facility]08-18-2025 15:45-0400 Body ciwremcimuo06.2 [degF]Helga Ross MD Work Phone: [facility]08-18-2025 15:45-0400 Body wxtqta55.87 kgHelga Ross MD Work Phone: [facility]08-18-2025 15:45-0400 Diastolic blood xliphauj39 mm[Hg]Helga Ross MD Work Phone: [facility]08-18-2025 15:45-0400 Heart rate60 /minHelga Ross MD Work Phone: [phone]08-18-2025 15:45-0400 SaO2% (BldA) [Mass fraction]98 %Helga Ross MD Work Phone: [phone]08-18-2025 15:45-0400 Systolic blood rqqeriby640 mm[Hg]Helga Ross MD Work Phone: [phone]12-23-2024 09:06-0500 Body mass index (BMI) [Ratio]23.38 kg/m2Amy Karolina CRENSHAW Work Phone: [facility] HospitalGcyvsfxllw16-29-1641 09:06-0500Body pcinqq95.88 kgAmy Karolina CRENSHAW Work Phone: [facility] HospitalRoklyiycnq10-92-9721 09:06-0500Diastolic blood xqvxdihg83 mm[Hg]Yamilka CRENSHAW Work Phone: [facility] HospitalGakqxoocak22-51-8368 09:06-0500Systolic blood wrlaxqzc922 mm[Hg]Yamilka CRENSHAW Work Phone: [facility] Encounters Encounter DateEncounter TypeCare ProviderFacilityStart: 01-19-2025 End: 01-56-8627Wkuhbjq encounter procedurePatricsonya Steinberg PASSENGER SOLICITOR-[facility] Work Phone: Start: 01-19-2025 End: 40-65-7370sbkkbzfcnqTuooyg E Braun MD Work Phone: [facility] Work Phone: Start: 01-19-2025 End: 11-92-3119qoqrsgtxpgVbweju E Braun MD Work Phone: [facility] Work Phone: Start: 01-19-2025 End: 52-67-5948Hcwmxjq encounter procedurePakirstie Steinberg PASSENGER SOLICITOR-[facility] Work Phone: Start: 12-15-2024 End: 51-75-9149Qwdhmw flowsheetNatalie A Felter PASSENGER SOLICITOR-UI LEAD DEVELOPER Work Phone: [facility] DERMStart: 12-15-2024 End: 81-36-0859Xfdpgf flowsheetNatalie A Felter PASSENGER SOLICITOR-UI LEAD DEVELOPER Work Phone: [facility] SWS DERMStart: 12-15-2024 End: 74-16-5152Nvpyij outpatient visit 25 minutesNatalie A Felter PASSENGER SOLICITOR-UI LEAD DEVELOPER Work Phone: [facility] SWS DERMComment on above:Lentigines (Primary Dx); Rhytides; Melanocytic nevus of scalp; Melanocytic nevus of trunkStart: 12-15-2024 End: 47-35-2420pqklpinifvIEIFQKR A FELTERNot AvailableStart: 05-26-2024 End: 90-41-7300Royipw flowsJeronimo CRENSHAW Work Phone: [facility] BCP OBStart: 05-26-2024 End: 82-73-8141Wpbrbo flowsheetYamilka CRENSHAW Work Phone: [facility] BCP OBStart: 05-26-2024 End: 64-77-4314Gyrhhhktg Result EncounterYamilka CRENSHAW Work Phone: [facility] External Department UnsolicitedStart: 05-26-2024 End: 28-55-2322Tiujupu encounter procedureYamilka CRENSHAW Work Phone: noMS HealthcareStart: 05-26-2024 End: 78-67-8819Szmwzfse preventive med est patient 40-64yrsAmy Karolina CRENSHAW Work Phone: [facility] BCP OBComment on above:Well woman exam with routine gynecological exam; Breast cancer screening by mammogram; Pelvic pain in femaleStart: 05-26-2024 End: 85-38-3408xojuhmyabcGNC RAMEYNot AvailableStart: 09-01-2022 End: 46-96-1418ectnrirfzfUP MARCIA E BRAUNFacility:D2Fkcbd: 26-03-7098Mrjzdaysg for preprocedural cardiovascular examinationDR JESUS ABHIJEET .[facility] Centertart: 08-18-2022 End: 40-44-9360yzbrfmilsiEB JESUS ABHIJEET .Facility:P4Xdefr: 08-18-2022 End: 38-23-5178Olvredfgj for preprocedural cardiovascular examinationDR JESUS ABHIJEET .Facility:L1Dadrj: 07-05-2022 End: 58-84-8464qsluiojbozUZ HELGA ROSSFacility:D4Wrrzl: 06-26-2022 End: 19-63-9768ddtxihnfocID HELGA ROSSFacility:S3Cdznc: 01-19-2022 End: 78-54-6223rtabqvcaxuZS MARCIA E BRAUNFacility:E9Ilylm: 39-77-8727Hnkkfjnxan and management of inpatientGLENN W CLIVE FAYE-[address] [place] Work Phone: Procedures DateProcedureProcedure DetailPerforming ClinicianStart: 47-76-9164Buvoa X-ray of left thumbMarcia Vandana FAYE Work Phone: Start: 48-51-3945EHD,APTIMA HPV,AGE GDLNYamilka CRENSHAW Work Phone: Start: 37-78-4192Qszjtoufgdc observation [Identifier] in Cervix by Cyto stainNatalimitzy Michel PASSENGER SOLICITOR-UI LEAD DEVELOPER Work Phone: Start: 09-41-2215Genufexnxub observation [Identifier] in Cervix by Cyto stainYamilka CRENSHAW Work Phone: Start: 74-14-7934MfepgvdtoduCdi Ramey PA Work Phone: Start: 50-03-6936WdufhkvexogFxw Ramey PA Work Phone: Plan of Treatment DateCare ActivityDetailAuthorStart: 03-05-1055Tivrngdxz for malignant neoplasm of colonNOMS HealthcareStart: 67-29-5800Owqhqdina for malignant neoplasm of cervixNOMS HealthcareStart: 11-13-9673Agtmwzjmc for malignant neoplasm of cervix Pap SmearNOMS HealthcareStart: 12-07-2025 End: 58-87-5374Okkltuq encounter gzabfsrrw99/06/2026 9:05 AM EDT Office Visit [facility] [address] [place] [id number] JunaidnanoJodi APRN-UI LEAD DEVELOPER [address] [place] [address] [facility] SWS DERMStart: 06-01-2025 End: 50-88-7515Rupjwsm encounter knwvlcmiq31/29/2025 10:00 AM EST Office Visit [facility] [address] [place] [id number] Yamilka Tucker PA [address] [place] [address] [facility] BCP OBStart: 56-62-9553Sxdvahhty vaccinationInfluenza Vaccine (#1)[facility] HealthcareStart: 12-15-2024 End: 09-33-8268Mpempbd encounter procedureNOMS SWS DERMComment on above:Arrived Start: 05-26-2024 End: 37-94-2127IF Breast - bilateral ScreeningBilateral screening mammogram Imaging Routine Breast cancer screening by mammogram Expected: 05/26/2024 (Approximate), Expires: 07/27/2025[facility] Work Phone: comment on above:Expected: 05/26/2024 (Approximate), Expires: 07/27/2025Start: 05-26-2024 End: 50-67-6097FD PelvisUS pelvis Imaging Routine Pelvic pain in female Expected: 05/26/2024 (Approximate), Expires: 05/26/2025N[facility] HealthcareComment on above:Expected: 05/26/2024 (Approximate), Expires: 05/26/2025Start: 05-26-2024 End: 07-38-0206Qislegi encounter vewruwxeh62/23/2024 9:00 AM EST Office Visit [facility] [address] [place] [address] Yamilka Tucker PA [address] [place] [address] Well woman exam with routine gynecological exam; Breast cancer screening by mammogramNOMS BCP OBComment on above:Well woman exam with routine gynecological exam; Breast cancer screening by mammogramStart: 00-11-1073Wnufguqwj vaccination Influenza Vaccine (#1)[facility] HealthcareStart: 32-70-0503Srsgderve for malignant neoplasm of breastMammogramNOMS HealthcareStart: 12-24-4446Nvwwiqmst for malignant neoplasm of colonNOMS HealthcareTHIN PREP TIS PAP AND HR HPV DNATHIN PREP TIS PAP AND HR HPV DNA Pathology and Cytology Routine Well woman exam with routine gynecological exam Ordered: 05/26/2024N[facility]S HealthcareComment on above: Ordered: 05/26/2024 Payers DatePayer CategoryPayerPolicy [id number] Health InsuranceMEDICAL MUTUAL Member Subscriber Plan / Payer (Effective 2016- Present) Name: Nathan LeiMarie Relation to Subscriber: Self Name: Corrina Evans Payer ID: Not on file Type: Not on file Address: [facility] [address] [id number] [id number] .[id number] 2.0.1.191470.3.57[id number] 2..0.1.622477.3.57[id number] 2.0.1.827455.3.57[id number] 2.0.1.799998.3.579.2.504873-61-6456Lqcp-[id number] [id number] 2.0.1.876847.3.579.2.593UnknownReverify Ougcfcxdh420-47-9405 [id number] 2.0.1.382338.3.579.2.531 Social History DateTypeDetailFacilityStart: 65-83-7430Dpuhuzo smoking status NHISNever smoked tobaccoNOMS HealthcareStart: 67-09-4577Amzhdxp use and exposureSmokeless tobacco non-userNOMS HealthcareStart: 03-06-2024 End: 69-33-4506Kxhdekoqh beverage intakeLifetime non-drinker (finding)[facility] HealthcareStart: 12-13-2023 End: 44-57-7614Fpsjbpf of Social functionNOMS HealthcareStart: 12-13-2023 End: 01-98-9765Olyqyie use panelNOMS HealthcareStart: 93-48-9423Wcz assigned at birthNot on fileJORDAN VALLEY [facility] HealthcareTobacco smoking status NHISUnknown if ever smoked [facility] Work Phone: SexFemale (finding)[facility] Start: 43-55-9362Rfi Assigned At [facility] Evaluation note 01-19-2025 Note Date & QfldRhdtBbidvsvz92-79-2305 Evaluation note* Diagnosis Onset Date Resolution Status Admit Date Injury of left thumb acuteAugust 2024 3:19pm [facility] Work Phone: History of Present illness Narrative 12-15-2024 Note Date & GqztFbqyIemabcsc99-55-1539 History of Present illness Narrative* Jodi Michel, PASSENGER SOLICITOR-UI LEAD DEVELOPER - 12/15/2024 9:05 AM EDT Skin Check Location: Patient requests a full body skin examination Dermatologic history: no history of skin cancer, no history of atypical moles, no family history ofmelanoma Last visit: 1 year ago Established patient Follow up Diagnosis: Rhytides Location: face Last visit: 1 year ago Symptoms: fine lines, wrinkles, sun spots Status: not noticing any worsening, but doing well with preventing more Current treatment: Tretinoin 0.05% cream All pertinent medical history, medications, and allergies were reviewed. General Exam: alert, oriented to person, place, and time, normal affect, well appearing Unaccompanied Scalp, Examined , exam limited by hair Right leg Examined Head, Face Examined Left leg Examined Neck Examined Right foot Examined Chest Examined Left foot Examined Back Examined Buttocks Examined Abdomen Examined Digits,nails: Examined Right arm Examined Left arm Examined Lymphatics: Not examined Hands Examined Skin Exam 1. LENTIGINES (2) Generalized, Mid Lower [place] Lip Scattered hudson macules in sun-exposed areas. Measured today 0.5 x 0.3 cm on bottom Titus. The patient was informed that lentigines are benign pigmented lesions that occur on sun-exposed andsun-damaged skin. No treatment is necessary. Recommended regular use of broad spectrum sunscreen SPF 30 or higher. Take a picture at home and monitor for any changes in color or size. Patient reportsthat her dentist took pictures and measurements also. Follow up in 2 months. 2. RHYTIDES Head Fine lines and wrinkles Recommended Botox for deeper lines and wrinkle. Recommended Alterno 0.5% apply topically every other day until tolerated, then every day for fine lines and wrinkles, this medication can cause over drying. Insurance companies may not cover medication due to it is considered cosmetic. Recommended using good rx coupon. Related Medications Tretinoin (Altreno) 0.05 % lotion APPLY A THIN LAYER TO FACE AT BEDTIME 3. MELANOCYTIC NEVUS OF SCALP Scalp Scattered benign appearing, regular brown to light brown melanocytic papules and macules with similar morphology Counseled regarding these benign growths. Rarely, a nevus can develop into malignant melanoma, so any changing nevi should be promptly re-evaluated. 4. MELANOCYTIC NEVUS OF TRUNK (6) Buttocks, Generalized, Left Arm, Left Leg, Right Arm, Right Leg Scattered benign appearing, regular brown to light brown melanocytic papules and macules with similar morphology Counseled regarding these benign growths. Rarely, a nevus can develop into malignant melanoma, so any changing nevi should be promptly re-evaluated. Next Visit: 1 [facility] Present illness Narrative 05-26-2024 Note Date & [id number] History of Present illness Narrative* DEN Ling - 05/26/2024 9:00 AM EST Reason for Appointment: Patient ID: Corrina Evans is a 49 y.o. female who presents for Gynecologic Exam Patient presents today for Annual Exam. MEDICATIONS Current Outpatient Medications Medication Instructions sertraline (Zoloft) 100 MG tablet take 1 tablet (100MG) by ORAL route every day Oral Tretinoin (Altreno) 0.05 % lotion Apply thin layer to face at bedtime ALLERGIES No Known Allergies PROBLEMS Active Ambulatory Problems Diagnosis Date Noted No Active Ambulatory Problems Resolved Ambulatory Problems Diagnosis Date Noted No Resolved Ambulatory Problems Past Medical History: Diagnosis Date Anxiety and depression ([facility]) BMI 24.0-24.9, adult Breast cancer screening by mammogram Depression ([facility]) Encounter for gynecological examination (general) (routine) without abnormal findings Lateral epicondylitis of right elbow HISTORY PAST MEDICAL HISTORY SOCIAL HISTORY Past Medical History: Diagnosis Date Anxiety and depression ([facility]) BMI 24.0-24.9, adult Breast cancer screening by mammogram Depression ([facility]) Encounter for gynecological examination (general) (routine) without [...] nursing note reviewed. Exam conducted with a investment broker present. Vitals: Estimated body mass index is 23.56 kg/m as calculated from the following: Height as of 08/02/22: 5' 3 . Weight as of 08/02/22: 133 lb. BP: No LMP recorded. ASSESSMENT & PLAN ICD-10-CM 1. Well woman exam with routine gynecological exam Z01.419 THIN PREP TIS PAP AND HR HPV DNA 2. Breast cancer screening by mammogram Z12.31 Bilateral screening mammogram Bilateral screening mammogram Annual Exam: Patient presents today for an annual exam. Patient states she is doing well. Pap was obtained without difficulty. Orders Placed This Encounter Procedures Bilateral screening mammogram Pt complains of having right side abdominal pain during ovulation. Pelvic US was given to patient to have scheduled at [facility]. Patient states otherwise no complaints Follow Up: Patient is to return in one year for annual unless needed otherwise. Documented by Destinee Quiroz MA on behalf of: DEN [facility]-2022 Note Date & [id number] NoteOPERATIVE NOTE OPERATION DATE: 09/01/2022 PROCEDURE: Melissa endometrial ablation with hysteroscopy. PREOPERATIVE DIAGNOSIS: Menorrhagia. POSTOPERATIVE DIAGNOSIS: Menorrhagia. ANESTHESIA: General. SURGEON: Jesus Hsieh D.O. MINE ENGINEERING MANAGER: None. URINE OUTPUT: Yellow and clear. BLOOD LOSS: 5 mL. FINDINGS: Fluffy appearing cavity. No gross evidence of polyps, fibroids or malignancy. Both ostia seen. SPECIMEN: None. PROCEDURE: The patient was taken back to the OR where she was prepped and draped in the normal sterile fashion after being placed in the dorsal lithotomy position, after being placed under general anesthesia without difficulty. A weighted speculum was placed into the vagina. The anterior lip was grasped with a single tooth tenaculum. The patient was then sounded to approximated 8 cm. The patient's cervix was gently dilated using Hegar dilators. The hysteroscope was passed through the cervix into the uterus where both ostia were seen. No gross evidence of polyps, fibroids or malignancy. The cervical length was noted to be 4 cm. The total cavity length is 4 cm. The Melissa ablation apparatus was set to approximately 4 cm in length. This was placed through the cervix and into the uterus. After the seal was tested, at that time the total ablation of 120 seconds was performed with the Melissa without difficulty. All instruments were removed from the vagina. Excellent hemostasis noted. Sponge and lap count correct times 2. Patient taken to recovery in stable condition.[facility] Evaluation note Note Date & TypeNoteFacilityEvaluation note* Diagnosis Well woman exam with routine gynecological exam Routine gynecological examination Breast cancer screening by mammogram Pelvic pain in female Unspecified symptom associated with female genital organs documented in this encounter [facility] Evaluation note Note Date & TypeNoteFacilityEvaluation note* Diagnosis Lentigines- Primary Rhytides Melanocytic nevus of scalp Benign neoplasm of scalp and skin of neck Melanocytic nevus of trunk Benign neoplasm of skin of trunk, except scrotum documented in this encounter [facility] Evaluation note Note Date & TypeNoteFacilityEvaluation note* Diagnosis Onset Date Resolution Status Admit Date Injury of left thumb acuteAugust 2024 3:19pm [facility] Work Phone: Reason for referral (narrative) Note Date & TypeNoteFacilityReason for referral (narrative)No reason for referral information availableFlower Hospital Work Phone: Summary Purpose Family History No Family History Records Found Relationship Condition Age at Onset Recorded Date/T anjana father Family history of mental disorder Unknown DeceasedUnknownmotherMalignant neoplasmUnknown Advance Directives No Advanced Directives Records Found Advance Directive Response Recorded Date/ Time Advance Directives No January 19, 2025 3:19pm Chief Complaint and Reason for Visit Chief Complaint Admit Date ^Iup November 09[birth year] 2003 6:47a m left thumb pain January 19, 2025 3: 19pm S69.92XA - Unspecified injury of left wr ist, hand January 19, 2025 4:20pm Reason for Visit Admit Date Injury of left thumb January 19, 2025 3 :19pm Additional Source Comments INFORMATION SOURCE (unrecogn ized section and content) DATE CREATED AUTHOR 09/06/2022 [facility] DATE CREATED AUTHOR AUTHOR'S ORGANIZ ATION 12/18/2024 [facility] DATE CREATED AUTHOR AUTHOR'S ORGANIZ ATION 02/07/2025 [facility] Care Teams (unrecognized sec tion and content) Team MemberRelationshipSpecialtyStart DateEnd Date Anjana Reyes MD [address] [place] [address] PCP - GeneralFamily Medicine02/01/23 Jodi Michel APRN-UI LEAD DEVELOPER [address] [place] [address] PCP - Medical [employer]01/20/1612Team MemberRelationshipSpecialty Start DateEnd Date Anjana Reyes MD [address] [place] [facility] [address] PCP - GeneralFamily Medicine02/01/23 Jodi Michel, [facility] [address] [place] [address] PCP - Medical [employer]01/20/1612Team MemberRelationshipSpecialty Start DateEnd Date Anjana Reyes MD [address] [place] [facility] [place] [address] PCP - GeneralFamily Medicine02/01/23 Jodi Michel PASSENGER SOLICITOR-[facility] [address] [place] [address] PCP - Medical [employer]01/20/1612Team MemberRelationshipSpecialty Start DateEnd Date Yamilka Tucker PA [address] [place] [address] [place] [address] PCP - Medical [employer]01/20/1612 Helga Ross MD [address] [facility] [place] [id number] PCP - General12/12/24Team MemberRelationshipSpecialtyStart DateEnd Date Yamilka Tucker PA [address] [place] [address] [place] [address] PCP - Medical [employer]01/20/1612 Helga Ross MD [address] [place] [id number] PCP - General12/12/24 Team Status: Active Member Role Status Dates Helga Ross MD Primary Care Provider Active Team Status: Active Member Role Status Dates Ady Hemphill Attending Provider Active Start : November 09, 2003 Team Status: Inactive Member Role Status Dates Helga Ross MD Primary Care Provider Active Start: January 19, 2025 End: January 19, 2025Julianne Steinberg APRN DIVERSIONAL THERAPIST'S ASSISTANT-CAttending Provider ActiveStart: January 19, 2025 End: January 19, 2025 Team Status: Active Member Role Status Dates Helga Ross MD Primary Care Provider Active Start: January 19, 2025 Julianne Steinberg APRN DIVERSIONAL THERAPIST'S ASSISTANT-CAttending ProviderActiveStart: January 19, 2025 Reason for Visit (unrecogniz ed section and content) ReasonCommentsGynecologic ExamReasonCommentsSkin Check Goals (unrecognized section and content) Goals may be documented in a n alternate sectionGoals may be documented in an alternate section FOR RECORDS PERTAINING TO PATIENTS WHO ARE OR HAVE BEEN ENROLLED IN A CHEMICAL DEPENDENCY/SUBSTANCEABUSE PROGRAM, SOME INFORMATION MAY BE OMITTED. This clinical summary was aggregated from multiple sources. Caution should be exercised in using it in the provision of clinical care. This summary normalizes information from multiple sources, and as a consequence, information in this document may materially change the coding, format and clinical context of patient data. In addition, data may be omitted in some cases. CLINICAL DECISIONS SHOULD BE BASED ON THE PRIMARY CLINICAL RECORDS. [facility]. provides no warranty or guarantee of the accuracy or completeness of information in this document.
== END 2025-06-01 21:54 | disposition home or self-care (01) ==
LOC: LAB 21:53
PROVIDERS: PCP Family Medicine; Visit Provider Physician Assistant
DX: Z01.419 Encounter for gynecological examination (general) (routine) without abnormal findings (principal)
CPT/HCPCS: 87624; 88175